=== PATIENT | female | born 1995 | race Caucasian/White ===

== ENCOUNTER 2016-08-28 14:09 | Emergency (ER) | payer OTHER ==
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
--- NOTE | 2016-08-28 16:30 | ED ORDER SUMMARY ---
..... Patient: REX LEYVA N OrderSheet [facility] VisitID: [id number] [place] [address] 21y, F Registration Date/Time: 08/28/2016 ORDER SHEET Weight: 57.1 kg (stated) Allergies: No Known Drug Allergy GENERAL ORDERS: CT Head wo Cont Urgent (14:43 08/28/2016 EKorolebrenda P.A.-C) (Ack 14:44 Adrienne) (15:23 Arlene) POC - Urine hCG (14:44 08/28/2016 EKsarahlebrenda P.A.-C) (14:52 Pricilla Hood) GC/Chlamydia, Urine (Urine, Clean Catch) (dirty sample) Urgent (16:29 08/28/2016 EKoroолег P.A.-C) (Ack 16:31 Adrienne) (16:44 Pricilla Hood) MEDICATION ORDERS: IV FLUIDS: ORDER SHEET NOTES: [Electronically signed by Samson Bowen R.N. (18:20 08/28/2016)] [Electronically signed by Bharati Kelley-Lucy (19:14 08/28/2016)] [Electronically locked/signed by Samson Bowen R.N. (18:20 08/28/2016)]
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
--- NOTE | 2016-08-28 16:30 | ED ORDER SUMMARY ---
..... Patient: REX LEYVA N OrderSheet [facility] VisitID: [id number] [place] [address] 21y, F Registration Date/Time: 08/28/2016 ORDER SHEET Weight: 57.1 kg (stated) Allergies: No Known Drug Allergy GENERAL ORDERS: CT Head wo Cont Urgent (14:43 08/28/2016 EKorolebrenda P.A.-C) (Ack 14:44 Adrienne) (15:23 Arlene) POC - Urine hCG (14:44 08/28/2016 EKsarahlebrenda P.A.-C) (14:52 Pricilla Hood) GC/Chlamydia, Urine (Urine, Clean Catch) (dirty sample) Urgent (16:29 08/28/2016 EKoroолег P.A.-C) (Ack 16:31 Adrienne) (16:44 Pricilla Hood) MEDICATION ORDERS: IV FLUIDS: ORDER SHEET NOTES: [Electronically signed by Samson Bowen R.N. (18:20 08/28/2016)] [Electronically signed by Bharati Kelley-Lucy (19:14 08/28/2016)] [Electronically locked/signed by Samson Bowen R.N. (18:20 08/28/2016)]
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
--- NOTE | 2016-08-28 19:15 | ED MAR SUMMARY ---
..... Medication Administration Record [facility] [address] [place] [address] Patient: REX LEYVA Visit ID: [id number] 21y, F Weight: 57.1 kg Height/Length: 61 in BMI: 23.8 ALLERGIES: No Known Drug Allergy
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
--- NOTE | 2016-08-28 19:15 | ED MED RECONCILIATION SUMMARY ---
Patient: REX LEYVA Medication Reconciliation Report [facility] VisitID: [id number] [address] [place] [address] 21y, F Registration Date/Time: 08/28/2016 Weight: 57.1 kg Height/Length: 61 in. BMI: 23.8 ALLERGIES: No Known Drug Allergy The patient's Home Medications are listed below: NONE. The source(s) of the original Home Medication information: patient The following Medications were given to the patient in the Emergency Department: None. The following Medications were prescribed to the patient: Motrin 600 mg tablets: take 1 tablet orally every 8 hours for 5 days, as needed for pain. Dispense fifteen (15). No refill. Substitution is permissible. -- Bharati Kelley, P.A.-Lucy Tylenol ER 650 mg (available over the counter): take 1 orally every 6 hours for 5 days. Dispense twenty (20). No refill. Substitution is permissible. -- Bharati Kelley, P.A.-C
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
--- NOTE | 2016-08-28 19:15 | ED MAR SUMMARY ---
..... Medication Administration Record [facility] [address] [place] [address] Patient: REX LEYVA Visit ID: [id number] 21y, F Weight: 57.1 kg Height/Length: 61 in BMI: 23.8 ALLERGIES: No Known Drug Allergy
== END 2016-08-28 16:55 | disposition home or self-care (01) ==
LOC: ED SRH 14:09
DX: S06.0X0A Concussion without loss of consciousness, initial encounter (principal); S00.93XA Contusion of unspecified part of head, initial encounter; S00.11XA Contusion of right eyelid and periocular area, initial encounter; S40.021A Contusion of right upper arm, initial encounter; S40.022A Contusion of left upper arm, initial encounter; Y04.2XXA Assault by strike against or bumped into by another person, initial encounter; Y93.9 Activity, unspecified; Y92.9 Unspecified place or not applicable; Y99.8 Other external cause status
CPT/HCPCS: 91227; 91228